=== PATIENT | female | born 1980 | race Caucasian/White ===

== ENCOUNTER 2019-07-08 15:45 | Emergency (ER) | payer MEDICARE, MEDICAID ==
[~2019-07-08] VITALS: Ht 160 cm; Wt 58.7 kg
[~2019-07-08 15:45] MED LIST: ACHD5005 PO; CEPH-507 PO; CLIN300C11 PO; DOCU100C37 PO; GABA-488 PO; IBUP-1773 PO; LANS15CA21 PO; LITH300C PO; OLAN15TA3 PO; PNV1TABL74 PO; SENN15TA11 PO; VALA10007 PO
[2019-07-08 15:51] VITALS: BP 137/93
[2019-07-08 16:15] LABS: BASOPHILS # (AUTO) 0.1 10^3/uL (0.0-0.1); BASOPHILS % (AUTO) 1 % (0-10); EOSINOPHILS # (AUTO) 0.1 10^3/uL (0.0-0.3); EOSINOPHILS % (AUTO) 2 % (0-10); HEMATOCRIT 45 % (35-52); HEMOGLOBIN 15.1 G/DL (11.5-16.0); LYMPHOCYTES # (AUTO) 1.6 X 10^3 (1.0-4.0); LYMPHOCYTES % (AUTO) 25 % (12-44); MEAN CORPUSCULAR HEMOGLOBIN 32 PG (25-34); MEAN CORPUSCULAR HGB CONC 33 G/DL (32-36); MEAN CORPUSCULAR VOLUME 96 FL (80-99); MONOCYTES # (AUTO) 0.4 X 10^3 (0.0-1.0); MONOCYTES % (AUTO) 7 % (0-12); NEUTROPHILS # (AUTO) 4.1 X 10^3 (1.8-7.8); NEUTROPHILS % (AUTO) 65 % (42-75); PLATELET COUNT 283 10^3/uL (130-400); RED CELL DISTRIBUTION WIDTH 11.6 % (10.0-14.5); WHITE BLOOD COUNT 6.3 10^3/uL (4.3-11.0)
[2019-07-08] MEDS ORDERED: ALPRAZolam 0.5 MG (XANAX) TAB PO SCH (16:15)
--- NOTE | 2019-07-08 16:16 | ED Neurological Problem ---
General Chief Complaint: Overdose Stated Complaint: TOOK DOUBLE DAILY MEDS Nursing Triage Note: PT STATES SHE TOOK DOUBLE HER DAILY MEDS THIS AM AND ALSO TOOK APPX X10 BENADRYL 25MG TABS AT 0800 TO HELP HER CALM DOWN TODAY. DENIES TRYING TO HARM HERSELF. Nursing Sepsis Screen: No Definite Risk Source: patient Exam Limitations: no limitations History of Present Illness Date Seen by Provider: Jul 08, 2019 Time Seen by Provider: 16:11 Initial Comments To ER with c/o taking double dose of daily meds. This is lithium 300mg (total dose 600mg), zyprexa 15mg (total dose 30mg), as well as 10-15 of the benadryl 25mg tabs in an attempt to "calm down" this morning at 0800. Denies wanting to harm herself at any time. Timing/Duration: 4-6 hours Severity: moderate Associated Symptoms: other (anxiety) Allergies and Home Medications Allergies Coded Allergies: No Known Drug Allergies (Unverified , 12/10/11) Home Medications Docusate Sodium 100 Mg Capsule, 100 MG PO BID PRN for CONSTIPATION Prescribed by: ELENO GARCIA on 11/30/15 1017 Hydrocodone Bit/Acetaminophen 1 Each Tablet, 1-2 TAB PO Q4H PRN for PAIN Prescribed by: ELENO GARCIA on 11/30/15 1017 Ibuprofen 600 Mg Tablet, 600 MG PO Q6H Prescribed by: ELENO GARCIA on 11/30/15 1017 Lansoprazole 15 Mg Capsule.dr, 15 MG PO DAILY Prescribed by: RADHA BENITEZ on 10/09/151928 Patient Home Medication List Home Medication List Reviewed: Yes Review of Systems Review of Systems Constitutional: see HPI Eyes: No Symptoms Reported Ears, Nose, Mouth, Throat: no symptoms reported Respiratory: no symptoms reported Cardiovascular: no symptoms reported Genitourinary: no symptoms reported Musculoskeletal: no symptoms reported Psychiatric/Neurological: See HPI, Anxiety Past Jpwvwva-Bulabc-Drwbxp Hx Patient Social History Alcohol Use: Denies Use Recreational Drug Use: No Smoking Status: Current Everyday Smoker Type Used: Cigarettes Recent Foreign Travel: No Contact w/Someone Who Travel: No Recent Infectious Disease Expo: No Recent Hopitalizations: No Immunizations Up To Date Tetanus Booster (TDap): Less than 5yrs Seasonal Allergies Seasonal Allergies: No Past Medical History Surgeries: No Respiratory: No Cardiac: No Neurological: No : No Female Reproductive Disorders: Denies Gastrointestinal: No Chronic Constipation Musculoskeletal: No Endocrine: No Cancer: No Psychosocial: Yes Anxiety, Bipolar, Schizophrenia, Depression Integumentary: No Blood Disorders: No Adverse Reaction/Blood Tranf: No Family Medical History Patient reports no known family medical history. Heart Disease Physical Exam Vital Signs Vital Signs - First Documented 07/08/19 15:51 Temp 36.6 Pulse 127 Resp 18 B/P (MAP) 137/93 (108) Pulse Ox 97 O2 Delivery Room Air Capillary Refill : Less Than 3 Seconds Height, Weight, BMI Height: 5'3.00" Weight: 153lbs. 0.0oz. 69.169697mo; 22.00 BMI Method:Stated General Appearance: WD/WN, no apparent distress, thin, other (alert, anxious appearing but cooperative and pleasant) HEENT: PERRL/EOMI, normal ENT inspection Respiratory: no respiratory distress, no accessory muscle use Cardiovascular: tachycardia (her rate was 127 during triage but reduced to 107 after we left the room on cardiac monitor technician. Respiratory rate 21 blood pressure 133/97 she is not hyperthermic.) Gastrointestinal: normal bowel sounds, non tender, soft Neurologic/Psychiatric: alert, oriented x 3 Crainal Nerves: normal hearing, normal speech, PERRL Skin: normal color, warm/dry Progress/Results/Core Measures Results/Orders Lab Results Laboratory Tests Test 07/08/19 16:05 Range/Units White Blood Count 6.3 4.3-11.0 10^3/uL Red Blood Count 4.70 4.35-5.85 10^6/uL Hemoglobin 15.1 11.5-16.0 G/DL Hematocrit 45 35-52 % Mean Corpuscular Volume 96 80-99 FL Mean Corpuscular Hemoglobin 32 25-34 PG Mean Corpuscular Hemoglobin Concent 33 32-36 G/DL Red Cell Distribution Width 11.6 10.0-14.5 % Platelet Count 283 130-400 10^3/uL Mean Platelet Volume 9.0 7.4-10.4 FL Neutrophils (%) (Auto) 65 42-75 % Lymphocytes (%) (Auto) 25 12-44 % Monocytes (%) (Auto) 7 0-12 % Eosinophils (%) (Auto) 2 0-10 % Basophils (%) (Auto) 1 0-10 % Neutrophils # (Auto) 4.1 1.8-7.8 X 10^3 Lymphocytes # (Auto) 1.6 1.0-4.0 X 10^3 Monocytes # (Auto) 0.4 0.0-1.0 X 10^3 Eosinophils # (Auto) 0.1 0.0-0.3 10^3/uL Basophils # (Auto) 0.1 0.0-0.1 10^3/uL My Orders Orders - CARLOS TATUM APRN Ekg Tracing (07/08/19 15:56) Salicylate (07/08/19 15:56) Acetaminophen (07/08/19 15:56) Alcohol (07/08/19 15:56) Cbc With Automated Diff (07/08/19 15:56) Hcg,Qualitative Serum (07/08/19 15:56) Comprehensive Metabolic Panel (07/08/19 15:56) Ua Culture If Indicated (07/08/19 16:03) Drug Screen Stat (Urine) (07/08/19 16:03) Alprazolam Tablet (Xanax Tablet) (07/08/19 16:15) Creatine Kinase (07/08/19 16:10) Vital Signs/I&O 07/08/19 15:51 Temp 36.6 Pulse 127 Resp 18 B/P (MAP) 137/93 (108) Pulse Ox 97 O2 Delivery Room Air Blood Pressure Mean: 108 Departure Communication (Admissions) Patient was able to urinate on command for us which SUPPORTS THE ABSENCE OF SIGNIFICANT ANTICHOLINERGIC EFFECTS. 1627-I spoke with poison control, biggest concern is the Benadryl use. Anticholinergic side effects would be expected. Treatment is supportive and they 'll call back as labs are done. Impression Primary Impression: Anxiety Disposition: 01 HOME, SELF-CARE Condition: Stable Departure-Patient Inst. Referrals: HOMAR MAHONEY MD (PCP/Family) Primary Care Physician Patient Instructions: ALCOHOL AND SUBSTANCE ABUSE CARLOS TATUM APRN Jul 08, 2019 16:16
[2019-07-08 16:32] LABS: BILIRUBIN,URINE NEGATIVE (NEGATIVE); CLARITY,URINE CLEAR; COLOR,URINE YELLOW; GLUCOSE, URINE (UA) NEGATIVE (NEGATIVE); KETONES,URINE NEGATIVE (NEGATIVE); LEUKOCYTE ESTERASE ,URINE NEGATIVE (NEGATIVE); NITRITE,URINE NEGATIVE (NEGATIVE); PROTEIN,URINE NEGATIVE (NEGATIVE)
[2019-07-08 16:39] LABS: BACTERIA,URINE NEGATIVE /HPF; SQUAMOUS EPITHELIAL CELL,UR RARE /HPF
[2019-07-08 16:48] LABS: AMPHETAMINE SCREEN, URINE NEGATIVE (NEGATIVE); BARBITURATE SCREEN URINE NEGATIVE (NEGATIVE); BENZODIAZEPINES SCREEN URINE NEGATIVE (NEGATIVE); CANNABINOID SCREEN, URINE NEGATIVE (NEGATIVE); COCAINE SCREEN URINE NEGATIVE (NEGATIVE); METHADONE STAT NEGATIVE (NEGATIVE); METHAMPHETAMINE SCREEN URINE S NEGATIVE (NEGATIVE); OPIATE SCREEN URINE NEGATIVE (NEGATIVE); OXYCODONE STAT NEGATIVE (NEGATIVE); PROPOXYPHENE STAT NEGATIVE (NEGATIVE); TRICYCLIC ANTIDEPRESSANTS SCRE NEGATIVE (NEGATIVE)
[2019-07-08 16:53] LABS: ALANINE AMINOTRANSFERASE 11 U/L (0-55); ALBUMIN 5.3 GM/DL (3.2-4.5); ALKALINE PHOSPHATASE 56 U/L (40-136); BILIRUBIN,TOTAL 0.7 MG/DL (0.1-1.0); BUN/CREATININE RATIO 5; CARBON DIOXIDE 22 MMOL/L (21-32); CHLORIDE 104 MMOL/L (98-107); GFR ESTIMATED > 60; GLUCOSE 103 MG/DL (70-105); POTASSIUM 3.8 MMOL/L (3.6-5.0); SALICYLATE < 5.0 MG/DL (5.0-20.0); SODIUM 139 MMOL/L (135-145)
--- NOTE | 2019-07-08 17:16 | NUR ---
Family et transplant case manager to nurses station with concern that pt took other medications unlisted during triage. Provider notified.
[2019-07-08 17:21] LABS: ACETAMINOPHEN < 10 UG/ML (10-30)
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
--- OUTSIDE RECORDS SUMMARY | 2019-07-12 16:27 | XMS REPORT ---
Author Author Marcella MAHONEY [facility] eClinicalWorks Address Unknown Phone Unavailable Care Team Providers Care Combination Saw Operator Name Role Phone HOMAR MAHONEY CP Unavailable Allergies, Adverse Reactions, Alerts Substance Reaction Event Type N.K.D.A. Info Not Available Non Drug Allergy Problems Problem Type Condition Code Onset Dates Condition Statu s Assessment Routine follow-up Z39.2 Active Problem Anxiety F41.9 Active Medications Medication Code System Code Instructions Start Date End Date Status Dosage Zyprexa [facility] [address]-22 15 MG Orally Once a day 1 tablet Risperdal [facility] [address]-43 1 MG Orally BID 1 tablet Procedures Procedure Coding System Code Date Office Visit, Est Pt., Level 3 CPT-[address] 2015 [facility] VISIT ESTABLISHED PATIENT CPT-[address] Vital Signs Date/Time: Feb 22, 2016 Cardiac Monitoring Heart Rate 80 bpm Weight 131.0 lbs Height 63 in BMI 23.20 Index Blood Pressure Diastolic 78 mmHg Blood Pressure Systolic 108 mmHg Results No Known Results Summary Purpose eClinicalWorks Submission
--- OUTSIDE RECORDS SUMMARY | 2019-07-12 16:27 | XMS REPORT ---
Author Marcella Torres [facility] eClinicalWorks Address Unknown Phone Unavailable Care Team Providers Care Market Specialist Name Role Phone BRYAN HANEY Unavailable Allergies, Adverse Reactions, Alerts Substance Reaction Event Type N.K.D.A. Info Not Available Non Drug Allergy Problems Problem Type Condition Code Onset Dates Condition Statu s Assessment Needs flu shot Z23 Active Problem Pain in soft tissues of limb 729.5 Active Assessment with 17 completed weeks gestation Z3A.17 Active Problem General counseling for prescription of oral contracept juan carlos V25.01 Active Assessment Bipolar 1 disorder F31.9 Active Assessment UTI (urinary tract infection) in pregnan cy in second trimester O23.42 Active Assessment Normal , first Z34.00 Acti ve Assessment care, first in second trimester Z34 .02 Active Medications Medication Code System Code Instructions Start Date End Date Status Dosage PrePLUS [facility] [address]-12 27-1 MG Orally no t defined Valacyclovir HCl [facility] [address]-40 1 GM Orally every 24 hrs 1 tablet Zyprexa [facility] [address]-39 15 MG Orally Once a day 1 tablet Ampicillin [facility] [address]-78 500 MG Orally every 6 hrs 1 capsule Procedures Procedure Coding System Code Date Office Visit, Est Pt., Level 3 CPT-4 32146 F eb 2015 URINE TEST CPT-4 88685 Jun 14, 201 6 URINALYSIS, AUTO, W/O SCOPE CPT-4 97758 Jun 14, 2015 SINGLE IMMUNIZATION ADMIN CPT-4 58929 Jun FLUARIX QUAD (3 & UP)- CPT-4 68704 F eb 2015 Vital Signs Date/Time: Jun 14, 2015 Temperature 97.6 F Weight 125.9 lbs Height 63 in BMI 22.302 Index Blood Pressure Diastolic 58 mmHg Blood Pressure Systolic 106 mmHg Cardiac Monitoring Heart Rate 90 bpm Results No Known Results Immunizations Vaccine Administration Date FLUARIX QUAD (3 & UP)-Entrisphere-2014Jun 14, 2015 Summary Purpose eClinicalWorks Submission
--- OUTSIDE RECORDS SUMMARY | 2019-07-12 16:27 | XMS REPORT ---
Author Marcella Sebastian [facility] eClinicalWorks Address Unknown Phone Unavailable Care Team Providers Care Ceramics Teacher Name Role Phone HOMAR MAHONEY CP Unavailable Allergies, Adverse Reactions, Alerts Substance Reaction Event Type N.K.D.A. Info Not Available Non Drug Allergy Problems Problem Type Condition Code Onset Dates Condition Statu s Problem Anxiety F41.9 Active Assessment care, first in second trimester Z34 .02 Active Problem Herpes B00.9 Active Assessment Herpes B00.9 Active Assessment 25 weeks gestation of Z3A.25 Active Medications Medication Code System Code Instructions Start Date End Date Status Dosage Valacyclovir HCl [facility] [place] [address]-81 500 MG Orally every [address] [facility] 2015 1 tablet Ampicillin [facility] [place] [address]-94 500 MG Orally every 6 hrs 1 capsule Zyprexa [facility] [place] [address]-44 15 MG Orally Once a day 1 tablet Procedures Procedure Coding System Code Date HERPES SIMPLEX TYPE 2 CPT-4 65294 August 14, 2015 HERPES SIMPLEX TEST CPT-4 61971 August 13 16 URINE-NO MICRO CPT-4 96651 August 14, 2015 Office Visit, Est Pt., Level 3 CPT-4 66879 A [facility] 2015 [facility] VISIT ESTABLISHED PATIENT CPT-4 G0467 A [facility]2015 VENIPUNCT, ROUTINE* CPT-4 78911 August 13 16 Vital Signs Date/Time: August 14, 2015 Temperature 98.3 F Weight 137.3 lbs Height 63 in BMI 24.322 Index Blood Pressure Diastolic 72 mmHg Blood Pressure Systolic 110 mmHg Cardiac Monitoring Heart Rate 87 bpm Results Name Result Date Reference Range Unit Abnormali ty Flag UA OB DIP (IN HOUSE) ----Glucose negative [id number] ----Protein negative [id number] ROUTINE VENIPUNCTURE Summary Purpose eClinicalWorks Submission
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
--- OUTSIDE RECORDS SUMMARY | 2019-07-12 16:27 | XMS REPORT ---
Author Author Marcella Hampton Organization [facility] Address [address] [place] [address] Care Team Providers Care Production Machine Computer Operator Name Role Phone MARCOS Hampton Unavailable PROBLEMS ALLERGIES No Information ENCOUNTERS IMMUNIZATIONS No Known Immunizations SOCIAL HISTORY No smoking Hx information available REASON FOR VISIT PLAN OF CARE VITAL SIGNS MEDICATIONS No Known Medications RESULTS No Results PROCEDURES No Known procedures INSTRUCTIONS MEDICATIONS ADMINISTERED No Known Medications MEDICAL (GENERAL) HISTORY
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
--- OUTSIDE RECORDS SUMMARY | 2019-07-12 16:27 | XMS REPORT ---
Author Author Marcella MAHONEY [facility] eClinicalWorks Address Unknown Phone Unavailable Care Team Providers Care Furnace Repairer Helper Name Role Phone HOMAR MAHONEY CP Unavailable Allergies, Adverse Reactions, Alerts Substance Reaction Event Type N.K.D.A. Info Not Available Non Drug Allergy Problems Problem Type Condition Code Onset Dates Condition Statu s Problem care, first , third trimester Z34.03 Active Problem Anxiety F41.9 Active Problem Abnormal glucose tolerance affecting , antepa rtum O99.810 Active Assessment Abnormal glucose tolerance affecting , antepa rtum O99.810 Active Assessment 39 weeks gestation of Z3A.39 Active Assessment care, first , third trimester Z34.03 Active Assessment screening for streptococcus B Z36 Active Medications Medication Code System Code Instructions Start Date End Date Status Dosage PrePLUS [facility] [address]-15 27-1 MG Orally no t defined Zyprexa [facility] [address]-91 15 MG Orally Once a day 1 tablet Lansoprazole [facility] [address]-71 15 MG Orally Once a day 1 capsule Procedures Procedure Coding System Code Date GLUCOSE BLOOD TEST CPT-4 83473 November 16, 2015 [facility] VISIT ESTABLISHED PATIENT CPT-4 G0467 J 2015 URINE-NO MICRO CPT-4 60161 November 16, 2015 [facility] NOBLL November Office Visit, Est Pt., Level 3 CPT-4 89672 J [email or web address] Vital Signs Date/Time: November 16, 2015 Cardiac Monitoring Heart Rate 96 bpm Weight 153.0 lbs Height 63 in Blood Pressure Diastolic 72 mmHg Blood Pressure Systolic 110 mmHg Results No Known Results Summary Purpose eClinicalWorks Submission
--- OUTSIDE RECORDS SUMMARY | 2019-07-12 16:27 | XMS REPORT ---
Author Author Marcella MAHONEY Organization [facility] Address [address] [place] [address] Care Team Providers Care Resistance Welding Machine Operator Name Role Phone HOMAR MAHONEY Unavailable PROBLEMS Type Condition ICD9-CM Code DYW33-DS Code Onset Dates Condition S tatus SNOMED Code Problem Dental examination Z01.20 Active 1 07605235 Problem Anxiety F41.9 Active 27780012 ALLERGIES No Known Allergies SOCIAL HISTORY Never Assessed PLAN OF CARE Activity Details Follow Up After Cardiology visit Reaso n: VITAL SIGNS Height 63 in 2016-06-12 Weight 130 lbs 2016-06-12 Temperature 98.5 degrees Fahrenheit 2016-06-12 Heart Rate 90 bpm 2016-06-12 Respiratory Rate 18 2016-06-12 BMI 23.03 kg/m2 2016-06-12 Blood pressure systolic 110 mmHg 2016-06-12 Blood pressure diastolic 60 mmHg 2016-06-12 MEDICATIONS Medication Instructions Dosage Frequency Start Date End Date Duration S tatus MedroxyPROGESTERone Acetate 150 MG/ML Intramuscular every 12 weeks 1 ml Jun, May, 12 weeks Active Zyprexa 15 MG Orally Once a day 1 tablet 24h Active Benztropine Mesylate 0.5 MG Orally Once a day 1 tablet at bedtime 24h Active Risperdal 1 MG Orally BID 1 tablet 12h Activ e RESULTS Name Result Date Reference Range TEST, URINE (IN HOUSE) 2016-06-13 RESULTS negative Lot # [id number] Control + Exp date 08/2017 PROCEDURES Procedure Date Ordered Result Body Site EKG, TRACING (IN-HOUSE) 2016-06-12 N/A ELECTROCARDIOGRAM, TRACING Jun 12, 2016 THER/PROPH/DIAG INJ, SC/IM Jun 12, 2016 [facility] VISIT ESTABLISHED PATIENT Jun 12, 2016 URINE TEST Jun 12, 2016 DEPO PROVERA (150 MG/ML) Jun 12, 2016 IMMUNIZATIONS Vaccine Route Administration Date Status DEPO PROVERA (150 MG/ML) IM Intramuscular Jun 12, 2016 Admini stered MEDICAL (GENERAL) HISTORY Type Description Date Medical History insomnia Medical History anxiety and panic attacks Surgical History section 01/11/16 Hospitalization History Child 01/11/16
--- OUTSIDE RECORDS SUMMARY | 2019-07-12 16:27 | XMS REPORT ---
Author Author Marcella IVERSON Organization [facility] Address [address] [place] [address] Care Team Providers Care Journeyman Machinist Name Role Phone PANKAJ IVERSON Unavailable PROBLEMS Type Condition ICD9-CM Code POA93-OT Code Onset Dates Condition S tatus SNOMED Code Problem Anxiety F41.9 Active 62382195 Assessment Diarrhea, unspecified type R19.7 Jan, Active 43016007 ALLERGIES Substance Reaction Event Type Date Status N.K.D.A. Unknown Non Drug Allergy Jan, Unknown SOCIAL HISTORY No smoking Hx information available PLAN OF CARE VITAL SIGNS Height 63 in 2016-01-11 Weight 134.2 lbs 2016-01-11 Heart Rate 78 bpm 2016-01-11 Respiratory Rate 20 2016-01-11 BMI 23.77 kg/m2 2016-01-11 Blood pressure systolic 100 mmHg 2016-01-11 Blood pressure diastolic 74 mmHg 2016-01-11 MEDICATIONS Medication Instructions Dosage Frequency Start Date End Date Duration S tatus Zyprexa 15 MG Orally Once a day 1 tablet 24h Active Risperdal 1 MG Orally BID 1 tablet 12h Activ e RESULTS No Results PROCEDURES Procedure Date Ordered Related Diagnosis Body Site Office Visit, Est Pt., Level 3 Jan 11, 2016 IMMUNIZATIONS No Known Immunizations
--- OUTSIDE RECORDS SUMMARY | 2019-07-12 16:27 | XMS REPORT ---
Author Author Marcella COPELAND [facility] Address [address] [place] [address] Care Team Providers Care Farm Machinery Mechanic Name Role Phone MARIELA COPELAND Unavailable PROBLEMS Type Condition ICD9-CM Code XOW97-JU Code Onset Dates Condition S tatus SNOMED Code Problem Dental examination Z01.20 Active 1 74284393 Problem Anxiety F41.9 Active 86046240 ALLERGIES No Known Allergies SOCIAL HISTORY No smoking Hx information available PLAN OF CARE VITAL SIGNS MEDICATIONS No Known Medications RESULTS No Results PROCEDURES Procedure Date Ordered Related Diagnosis Body Site Billing Notes on claim May 19, 2016 IMMUNIZATIONS No Known Immunizations
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
--- OUTSIDE RECORDS SUMMARY | 2019-07-12 16:27 | XMS REPORT ---
Author Author Marcella RUSSO [facility] Address [address] [place] [address] Care Team Providers Care Legal Support Manager Name Role Phone VERA RUSSO Unavailable PROBLEMS Type Condition ICD9-CM Code BUV71-NU Code Onset Dates Condition S tatus SNOMED Code Problem Anxiety F41.9 Active 41476570 Assessment Encounter for Depo-Provera contraception Z30.42 Jan, Active 407275261 ALLERGIES Unknown Allergies SOCIAL HISTORY No smoking Hx information available PLAN OF CARE VITAL SIGNS MEDICATIONS Unknown Medications RESULTS Name Result Date Reference Range TEST, URINE (IN HOUSE) 2016-01-25 RESULTS Negative Lot # [id number] Control + Exp date PROCEDURES Procedure Date Ordered Related Diagnosis Body Site URINE TEST Jan 25, 2016 DEPO PROVERA (150 MG/ML) Jan 25, 2016 THER/PROPH/DIAG INJ, SC/IM Jan 25, 2016 IMMUNIZATIONS Vaccine Route Administration Date Status DEPO PROVERA (150 MG/ML) IM Intramuscular Jan 25, 2016 Admini stered
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
--- OUTSIDE RECORDS SUMMARY | 2019-07-12 16:27 | XMS REPORT ---
Author Author Marcella MAHONEY [facility] Address [address] [place] [address] Care Team Providers Care Finishing Inspector Name Role Phone HOMAR MAHONEY Unavailable PROBLEMS Type Condition ICD9-CM Code [id number] Code Onset Dates Condition S tatus SNOMED Code Problem Anxiety F41.9 Active [id number] ALLERGIES Unknown Allergies SOCIAL HISTORY No smoking Hx information available PLAN OF CARE VITAL SIGNS MEDICATIONS Unknown Medications RESULTS No Results PROCEDURES No Known procedures IMMUNIZATIONS No Known Immunizations
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
--- OUTSIDE RECORDS SUMMARY | 2019-07-12 16:27 | XMS REPORT ---
Author Marcella Mata [facility] eClinical[employer] Address Unknown Phone Unavailable Care Team Providers Care Can Bander Operator Name Role Phone VERA RUSSO CP Unavailable Allergies, Adverse Reactions, Alerts Substance Reaction Event Type N.K.D.A. Info Not Available Non Drug Allergy Problems Problem Type Condition Code Onset Dates Condition Statu s Problem care, first , third trimester Z34.03 Active Problem Anxiety F41.9 Active Problem Abnormal glucose tolerance affecting , antepa rtum O99.810 Active Assessment care, first , third trimester Z34.03 Active Assessment 40 weeks gestation of Z3A.40 Active Medications Medication Code System Code Instructions Start Date End Date Status Dosage Zyprexa [facility] [address]-22 15 MG Orally Once a day 1 tablet PrePLUS [facility] [address]-51 27-1 MG Orally no t defined Lansoprazole [facility] [address]-62 15 MG Orally Once a day 1 capsule Procedures Procedure Coding System Code Date [facility] VISIT ESTABLISHED PATIENT CPT-4 G0467 J 2015 Office Visit, Est Pt., Level 3 CPT-4 11405 J 2015 URINE-NO MICRO CPT-4 75407 November 21, 2015 Vital Signs Date/Time: November 21, 2015 Cardiac Monitoring Heart Rate 92 bpm Weight 152.4 lbs Height 63 in Blood Pressure Diastolic 72 mmHg Blood Pressure Systolic 114 mmHg Results No Known Results Summary Purpose eClinicalWorks Submission
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
== END 2019-07-08 19:20 | disposition left against medical advice (07) ==
LOC: EDUNIT# 15:45 → ER 15:46
DX: F41.9 Anxiety disorder, unspecified (principal); F17.210 Nicotine dependence, cigarettes, uncomplicated; Z82.49 Family history of ischemic heart disease and other diseases of the circulatory system
CPT/HCPCS: 36415; 80053; 80306; 80320; 80329; 81000; 82550; 84703; 85025; 93005

== ENCOUNTER 2019-11-27 11:39 | Emergency (ER) | payer MEDICARE, MEDICAID ==
[~2019-11-27] VITALS: Ht 160 cm; Wt 54.0 kg
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
[2019-11-27 12:01] LABS: BILIRUBIN,URINE NEGATIVE (NEGATIVE); CLARITY,URINE SL CLOUDY; COLOR,URINE YELLOW; GLUCOSE, URINE (UA) NEGATIVE (NEGATIVE); KETONES,URINE NEGATIVE (NEGATIVE); LEUKOCYTE ESTERASE ,URINE TRACE (NEGATIVE); NITRITE,URINE NEGATIVE (NEGATIVE); PROTEIN,URINE NEGATIVE (NEGATIVE)
[2019-11-27 12:13] LABS: BACTERIA,URINE FEW /HPF
[2019-11-27 12:14] LABS: SQUAMOUS EPITHELIAL CELL,UR >50 /HPF
--- NOTE | 2019-11-27 13:35 | NUR ---
PT TALKING TO THE [facility] ON THE PHONE.
--- NOTE | 2019-11-27 14:04 | NUR ---
LUNCH PROVIDED FOR PT.
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
--- NOTE | 2019-11-27 14:30 | NUR ---
[facility] CALLED FOR PT. [facility]
[2019-11-27] MEDS ORDERED: ONDA4TAB11 PO (14:33)
[2019-11-27 14:37] VITALS: BP 103/68
== END 2019-11-27 14:37 | disposition home or self-care (01) ==
LOC: EDUNIT# 11:39 → ER 11:40
DX: S06.0X1A Concussion with loss of consciousness of 30 minutes or less, initial encounter (principal); S01.551A Open bite of lip, initial encounter; T74.11XA Adult physical abuse, confirmed, initial encounter; F17.210 Nicotine dependence, cigarettes, uncomplicated; K59.09 Other constipation; R40.2142 Coma scale, eyes open, spontaneous, at arrival to emergency department; R40.2252 Coma scale, best verbal response, oriented, at arrival to emergency department; R40.2362 Coma scale, best motor response, obeys commands, at arrival to emergency department; Z82.49 Family history of ischemic heart disease and other diseases of the circulatory system; Y04.8XXA Assault by other bodily force, initial encounter; Y07.01 Husband, perpetrator of maltreatment and neglect
CPT/HCPCS: 70450; 72125; 81000; 84703